=== PATIENT | male | born 1955 | race Caucasian/White ===

== ENCOUNTER 2021-10-30 07:15 | Emergency (ER) | payer OTHER, SELFPAY ==
[~2021-10-30] VITALS: Ht 175.3 cm; Wt 74.8 kg
[2021-10-30 07:15] VITALS: BP_SYST 113
--- NOTE | 2021-10-30 07:15 | NUR ---
BROUGHT BACK TO BED #6 AND TRIAGED. REPORT GIVEN TO SADAF
--- NOTE | 2021-10-30 07:38 | NUR ---
ER at bedside examining patient.
--- NOTE | 2021-10-30 07:42 | NUR ---
66 YEARS OLD MALE ALERT, ORIENTED X4 WALKING TO ER C/O BODY ACHES, DIARRHEA REQUEST ASSISTANCE, GOT PRISON REFERRALS FROM [facility] AND STATED ALL SHELTERS ARE FULL.
--- NOTE | 2021-10-30 07:54 | NUR ---
LAB DRAWN BY ADVERTISING SPACE CLERK, COVID SWAB COLLECTED, CHEST X-RAY COMPLETED, PATIENT WENT TO CT.
[2021-10-30 08:01] LABS: BASOPHILS % (AUTO) 0.8 % (0.0-2.0); EOSINOPHILS # (AUTO) 0.4 K/uL (0.0-0.4); HEMOGLOBIN 13.4 g/dL (14.0-18.0); LYMPHOCYTES # (AUTO) 0.8 K/uL (1.0-5.5); LYMPHOCYTES % (AUTO) 14.4 % (20.5-51.5); MEAN CORPUSCULAR HEMOGLOBIN 27 pg (27-31); MEAN CORPUSCULAR HGB CONC 33 % (32-36); MEAN CORPUSCULAR VOLUME 84 fL (79.0-98.0); MONOCYTES # (AUTO) 0.4 K/uL (0.0-1.0); NEUTROPHILS # (AUTO) 4.2 K/uL (1.8-7.7); NEUTROPHILS % (AUTO) 71.8 % (40.0-70.0); PLATELET COUNT (AUTO) 373 K/uL (130-430); RED BLOOD CELL COUNT(AUTO) 4.91 MIL/uL (4.2-6.2); RED CELL DISTRIBUTION WIDTH 16.4 % (9.0-15.0); WHITE BLOOD COUNT (AUTO) 5.9 K/uL (4.8-10.8)
--- NOTE | 2021-10-30 08:17 | NUR ---
PATIENT RETURNS TO ROOM EKG COMPLETED AND HANDED TO ER ADRIAN ABDULLAHI DR.
[2021-10-30 08:34] LABS: CREATININE 0.87 mg/dL (0.55-1.30); POTASSIUM 4.1 mmol/L (3.5-5.1)
[2021-10-30 08:40] LABS: ALBUMIN 3.5 g/dL (3.4-4.8); TOTAL BILIRUBIN 0.3 mg/dL (0.0-1.0)
[2021-10-30] MEDS ORDERED: ALBMDI INH (09:06)
[2021-10-30] MEDS ORDERED: AMOX-426 PO (09:06)
--- NOTE | 2021-10-30 09:14 | NUR ---
patient condition stable eloped after treatment.
--- NOTE | 2021-10-30 09:17 | NUR ---
Patient eloped,left without written discharge instructions. Patient in stable condition.
== END 2021-10-30 09:17 | disposition home or self-care (01) ==
LOC: SED 07:15
DX: J40 Bronchitis, not specified as acute or chronic (principal); Z20.822 Contact with and (suspected) exposure to COVID-19; Z79.899 Other long term (current) drug therapy
CPT/HCPCS: 36415; 70450-TC; 71045; 76376; 80053; 84484; 85025; 93005; 99285